=== PATIENT | female | born 1965 | race Caucasian/White ===

== ENCOUNTER 2016-09-11 07:33 | Day surgery (SDC) | payer OTHER ==
[2016-09-07 16:04] VITALS: BMI 30.7
[2016-09-11] MEDS ORDERED: LIDOCAINE HCL/PF 2% SDV 5ML VIAL ONE (08:46)
[2016-09-11] MEDS ORDERED: ceFAZolin SODIUM 1 GM VIAL ONE (08:46)
[2016-09-11] MEDS ORDERED: PROPOFOL 20 ML ONE ×2 (08:46)
[2016-09-11] MEDS ORDERED: MIDAZOLAM HCL 2 MG/2 ML SINGLE DOSE VIAL ONE (08:47)
[2016-09-11] MEDS ORDERED: ROCURONIUM BROMIDE 50 MG/5 ML VIAL ONE ×2 (08:48→09:38)
--- NOTE | 2016-09-11 09:05 | HP ---
History & Physical Update - History History: No Change - Physical Physical: No Change - Assessment Assessment: No Change - Plan Plan: No Change
[2016-09-11] MEDS ORDERED: BUPIVACAINE HCL/PF 0.5% (5MG/ML) 10 ML VIAL ONE (09:08)
[2016-09-11] MEDS ORDERED: ceFAZolin SODIUM 1 GM VIAL IVPB ONE (09:14)
[2016-09-11] MEDS ORDERED: BUPIVACAINE HCL/PF 0.5% (5MG/ML) 10 ML VIAL IJ ONE (09:29)
[2016-09-11] MEDS ORDERED: DEXAMETHASONE SOD PHOSPHATE 4 MG/1 ML VIAL ONE (09:38)
[2016-09-11] MEDS ORDERED: NEOSTIGMINE METHYLSULFATE 0.5 MG/ML - 10 ML MDV ONE (09:38)
[2016-09-11] MEDS ORDERED: GLYCOPYRROLATE 0.2 MG/1 ML VIAL ONE (09:38)
[2016-09-11] MEDS ORDERED: ONDANSETRON 4 MG/2 ML VIAL IVPUSH PRN (11:12)
[2016-09-11] MEDS ORDERED: IBUPROFEN 800 MG/8 ML IJ IVPB PRN (11:12)
[2016-09-11] MEDS ORDERED: ACETAMINOPHEN 1000 MG/100 ML VIAL (NON FORMULARY) IVPB PRN (11:13)
--- NOTE | 2016-09-11 11:47 | OP ---
Operative Note - Note: Operative Date: 09/11/16 Pre-Operative Diagnosis: ventral hernia Operation: robotic NORA, umbilical hernia and diastasis recti repair Findings: omental adhesions, 1.5 cm umbilical defect, diastasis recti Post-Operative Diagnosis: Other (adhesions, umbilical hernia, diastasis recti) Surgeon: José Miguel Alvarez Supervisor Microfilm Duplicating Unit: Emily Irene Anesthesia: General Estimated Blood Loss (mls): 3 Operative Report Dictated: Yes
--- NOTE | 2016-09-11 16:02 | OP ---
DATE OF OPERATION: 09/11/2016 PROCEDURE: Robotic assisted umbilical hernia and diastasis recti repair, lysis of adhesions. PREOPERATIVE DIAGNOSIS: Umbilical hernia. POSTOPERATIVE DIAGNOSIS: Umbilical hernia and diastasis recti. SURGEON: José Miguel Alvarez M.D. PHLEBOTOMY TECHNOLOGIST: Selina Wiley ANESTHESIA: General endotracheal anesthesia. FINDINGS AND PROCEDURE: This is a 51-year-old female who presents with an umbilical bulge of about 4 cm in diameter on physical examination. Patient also had a previous section via Pfannenstiel incision which revealed a suprapubic fullness. So patient was advised repair of the umbilical hernia, and consent was obtained after discussing the risks, benefits, and alternatives to the procedure. Patient was brought to the operating room and placed in supine position. General endotracheal anesthesia was administered. A roll was then placed under the patient's left flank. The abdomen was prepped and draped in the usual sterile fashion using Xeroform 5% Marcaine, local anesthesia was administered to the proposed incision sites. The peritoneal cavity was entered via left subcostal incision behind the anterior axillary line using the Veress needle technique, pneumoperitoneum was established. An 8-mm port was then inserted. The 30-degree, 3-D laparoscope was then inserted, and the peritoneal cavity was carefully inspected to rule out inadvertent injury. At this point, the omental adhesions were noted at the area of the umbilicus. Two 8-mm ports were inserted at the left flank, behind the axillary line one at the level of the umbilicus and one at the left lower quadrant just 1 fingerbreadth anterior to the anterior superior iliac spine. The target organ was then set, and the robotic arms were docked. A fenestrated bipolar forceps was inserted at the left lower quadrant port, and EndoWrist sebastian connected to monopolar cautery was inserted in the left subcostal port. The undersigned scrubbed out to commence the console part of the procedure. The omental adhesions were taken down using the laparoscopic EndoWrist sebastian connected to monopolar cautery towards the Pfannenstiel incision was also carefully inspected and noted to have some weakness but no obvious hernia defect. The peritoneal covering the umbilicus was incised and a 1.5-cm defect at the umbilicus was noted. The rectus abdominis muscles were noted to be away from the midline, causing the diastasis. At this point, the falciform ligament was taken down to about at least 10 cm away from the umbilicus. The diastasis as well as the umbilical hernia was then repaired using V-Loc number 1 nonabsorbable suture in a running fashion startin at least 5 cm below the umbilicus towards the falciform ligament also 5 cm above the umbilicus. The weakness of the Pfannenstiel incision was also apposed with 1 [id number] V-Loc number 1 nonabsorbable suture. After the repair was deemed satisfactory, the instruments were removed, the robotic arms were undocked, and the pneumoperitoneum was evacuated. The ports were removed and the wounds were closed with subcuticular Biosyn 4-0 sutures reinforced with Dermabond. The patient was successfully extubated and transferred to the postanesthesia care unit in satisfactory condition. Estimated blood loss was about 2 mL, wound class clean. Patient received 1 g of Ancef prior to the start of the procedure. ADDENDUM: Robotic assisted lysis of adhesions. Max [id number] MTDD
[2016-09-11] MEDS ORDERED: oxyCODONE HCL 5 MG TABLET PO PRN (16:14)
[2016-09-11] MEDS ORDERED: ACETAMINOPHEN INJECTION 100 ML IVPB ONE (17:04)
[2016-09-11] MEDS ORDERED: ACETAMINOPHEN 1000 MG/100 ML VIAL (NON FORMULARY) IVPB ONE (17:11)
[2016-09-11] MEDS: LACTATED RINGERS SOLUTION 1,000 ML IV SCH (20:14)
[2016-09-12] MEDS: LACTATED RINGERS SOLUTION 1,000 ML IV SCH (06:22)
[2016-09-12 08:05] VITALS: BP 120/73; TEMP 98.2
[2016-09-12 10:15] VITALS: PULSE 73
--- NOTE | 2016-09-12 10:45 | DS ---
Physical Exam: SUBJECTIVE: Patient seen and examined. Patient is feeling well. She is having some abdominal pain, but it is controlled. She is tolerating her diet. She has been voiding without issue. She denies CP, SOB, fever, chills, nausea, vomiting. OBJECTIVE: Vital Signs Temperature 98.2 F 09/12/16 08:00 Pulse Rate 73 09/12/16 10:00 Respiratory Rate 18 09/12/16 08:00 Blood Pressure 120/73 09/12/16 08:00 O2 Sat by Pulse Oximetry (%) 94 L 09/12/16 10:00 PHYSICAL EXAM GENERAL: The patient is awake, alert, and fully oriented, in no acute distress. HEAD: Normal with no signs of trauma. EYES: PERRL, extraocular movements intact, sclera anicteric, conjunctiva clear. ENT: Moist mucous membranes. NECK: Trachea midline, full range of motion, supple. LUNGS: Breath sounds equal, clear to auscultation bilaterally, no wheezes, no crackles, no accessory muscle use. HEART: Regular rate and rhythm, S1, S2 without murmur, rub or gallop. ABDOMEN: Soft, mild tenderness with palpation, port site incisions clean/dry/ intact, nondistended, no guarding, no rebound EXTREMITIES: 2+ pulses, warm, well-perfused, no edema. NEUROLOGICAL: Cranial nerves II through XII grossly intact. Normal speech, gait not observed. PSYCH: Normal mood, normal affect. SKIN: Warm, dry, normal turgor, no rashes or lesions noted. LABS CBC,CMP POC Glucometer 93 UNITS (()) 09/12/16 06:33 HOSPITAL COURSE: Date of Admission:09/11/16 Date of Discharge: 09/12/16 The patient presented to [facility] on 09/11/16 for a planned robotic umbilical hernia repair with Dr. Alvarez. The operation proceeded without complication. Please see full operative report for complete detail. The patient was admitted to the Med- Surg Unit after surgery for low oxygen saturation (80-88). Patient was placed on 2L NC and saturations improved. Now, POD#1 s/p robotic NORA, umbilical hernia and diastasis recti repair, oxygen saturations 94-98 on room air. The patient's hospital stay was largely uneventful. She is tolerating her diet, pain is controlled, she is urinating without issue, and ambulating. The discharge instructions and an oral pain management plan were reviewed with the patient. All questions answered. Above plan discussed with Dr. Alvarez and agreed. Minutes to complete discharge: 30 Visit type - Case Type Case Type: Scheduled Admission
[2016-09-12] MEDS ORDERED: PATIENT'S OWN MEDICATION (NON-FORMULARY) (Amlodipine Bes/Olmesartan Med [Amlodipine-Olmesa PO SCH (10:54)
--- NOTE | 2016-09-12 12:20 | SURG ---
Addendum entered and electronically signed by Emily Irene PA 09/12/16 12:24: date of surgery was 09/11 Original Note: Surgery Training Assistant Note Training Assistant: Emily Irene PA-C Date of Service: 09/12/16 Diagnosis: ventral hernia Procedure: robotic NORA, umbilical hernia and diastasis recti repair I was present for the entirety of the operative procedure. For further detail, please refer to operative report. Visit type - Case Type Case Type: Scheduled Admission - Emergency Emergency Visit: No - New patient This patient is new to me today: No - Critical Care Critical Care patient: No
[2016-09-12] MEDS ORDERED: metFORMIN HCL 500 MG TABLET (FP) PO SCH (16:30)
[2016-09-13] MEDS ORDERED: PATIENT'S OWN MEDICATION (NON-FORMULARY) (Amlodipine Bes/Olmesartan Med [Amlodipine-Olmesa PO SCH (10:51)
== END 2016-09-12 13:25 | disposition home or self-care (01) ==
LOC: JASU-SURG 07:33 → J6S 18:10 → JASU-SURG 09-12 13:25
PROVIDERS: ATTEND Surgery
PROC: 8E0W4CZ Robotic Assisted Procedure of Trunk Region, Percutaneous Endoscopic Approach (ICD-10-PCS; 2016-09-11)
PROC: 0WQF4ZZ Repair Abdominal Wall, Percutaneous Endoscopic Approach (ICD-10-PCS; principal; 2016-09-11 09:00)
DX: K42.9 Umbilical hernia without obstruction or gangrene (principal)
CPT/HCPCS: 49652; S2900; 84703; 94010; 94760

== ENCOUNTER 2017-01-10 18:18 | Emergency (ER) | payer OTHER ==
[2017-01-10 18:56] VITALS: BP 145/83; PULSE 98; TEMP 98.2; BMI 30.9
[2017-01-10] MEDS ORDERED: IBUPROFEN 400 MG TABLET (FP) PO ONE ×2 (19:29→19:32)
--- NOTE | 2017-01-10 19:34 | PDOC ---
History of Present Illness - General Chief Complaint: Injury Stated Complaint: INJURY Time Seen by Provider: 01/10/17 19:14 History Source: Patient - History of Present Illness Occurred: reports: yesterday Severity: reports: moderate Upper Extremity Pain Location: left: wrist Past History - Past Medical History Allergies/Adverse Reactions: Allergies Allergy/AdvReac Type Severity Reaction Status Date / Time No Known Drug Allergies Allergy Verified 01/10/17 18:56 Home Medications: Ambulatory Orders Amlodipine Bes/Olmesartan Med [Amlodipine-Olmesartan 5-40 mg] 1 each PO DAILY Metformin HCl 500 mg PO BID 09/07/16 Aspirin/Acetaminophen/Caffeine [Excedrin Migraine Caplet] 1 each PO PRN PRN #0 09/11/16 Anemia: No Cardiac Disorders: No CHF: No Diabetes: Yes Disorders: No HTN: Yes Liver Disease: No Thyroid Disease: No - Surgical History Abdominal Surgery: Yes (umbilical hernia) - Psycho/Social/Smoking Cessation Hx Suicidal Ideation: No Smoking History: Never smoked Have you smoked in the past 12 months: No Information on smoking cessation initiated: No Hx Alcohol Use: No Drug/Substance Use Hx: No Substance Use Type: None Review of Systems - Review of Systems Constitutional: No: Chills, Fever Musculoskeletal: Yes: Joint Pain, Joint Swelling Neurological: No: Numbness, Tingling, Weakness *Physical Exam - Vital Signs Last Vital Signs Temp Pulse Resp BP Pulse Ox 98.2 F 98 H 18 145/83 98 01/10/17 18:48 01/10/17 18:48 01/10/17 18:48 01/10/17 18:48 01/10/17 18:48 - Physical Exam General Appearance: Yes: Appropriately Dressed. No: Apparent Distress HEENT: positive: Normal Voice Neck: positive: Supple Respiratory/Chest: negative: Respiratory Distress Extremity: positive: Tender, Swelling, Other (localized ecchymosis to volar aspect of L wrist w/ +ttp, FROMI, no snuffbox ttp) Integumentary: positive: Dry, Warm Neurologic: positive: Fully Oriented, Alert, Normal Mood/Affect ED Treatment Course - RADIOLOGY Radiology Studies Ordered: Category Date Time Status WRIST-LEFT [RAD] Stat Radiology 01/10/17 19:28 Ordered Medical Decision Making - Medical Decision Making 01/10/17 19:29 51-year-old female, history of diabetes, hypertension, here with pain and swelling to left wrist 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 Patient states she first heard "an explosion" in her wrist and this a.m. noticed bruising. States pain worse with flexion of wrist and radiates proximally to forearm. Denies any specific trauma. Also complaining of intermittent cramps to bilaterally hands "for a long time" as per pt See exam L wrist pain/swelling x 2 days Denies trauma 3x2 cm area of ecchymosis to volar aspect of wrist on exam -pain control -pt insisting on XR though aware less likely fx -anticipate dc w/ pain meds and pmd f/u Chronic b/l hand cramps No findings on exam to explain sxs -pmd f/u 01/10/17 19:51 XR neg. George applied. Pt dc w/ pmd f/u *DC/Admit/Observation/Transfer Diagnosis at time of Disposition: Bruising of wrist, Hand cramps - Discharge Dispostion Disposition: HOME Condition at time of disposition: Good - Referrals Referrals: Derek Ospina MD [Primary Care Provider] - - Patient Instructions Printed Discharge Instructions: Contusion Additional Instructions: Your xray was normal. Take 600mg-800mg motrin for pain and follow up with your PMD
== END 2017-01-10 19:56 | disposition home or self-care (01) ==
LOC: JERFT 18:18
DX: S60.212A Contusion of left wrist, initial encounter (principal); X58.XXXA Exposure to other specified factors, initial encounter; Y93.G1 Activity, food preparation and clean up; Y92.512 Supermarket, store or market as the place of occurrence of the external cause; Y99.0 Civilian activity done for income or pay
CPT/HCPCS: 73110-TC-LT; 99281-25

== ENCOUNTER 2018-05-28 15:22 | Emergency (ER) | payer OTHER ==
[2018-05-28 15:38] VITALS: BP 136/84; PULSE 84; TEMP 98.5; BMI 30.9
--- NOTE | 2018-05-28 15:58 | PDOC ---
History of Present Illness - General Chief Complaint: Pain Stated Complaint: EAR PROBLEM Time Seen by Provider: 05/28/18 15:57 History Source: Patient Exam Limitations: No Limitations - History of Present Illness Initial Comments: 05/28/18 16:22 Patient is a 53-year-old female who presents to the emergency department today for pain to her left ear. Patient states she feels a ball on the outside of her ear and states that it has been there for 3-4 days. She states that it hurts to lay on her ear due to the pain. Denies fevers, chills, jaw pain, hearing loss, otorrhea, dizziness. Past History - Travel Traveled outside of the country in the last 30 days: No Close contact w/someone who was outside of country & ill: No - Past Medical History Allergies/Adverse Reactions: Allergies Allergy/AdvReac Type Severity Reaction Status Date / Time No Known Drug Allergies Allergy Verified 05/28/18 15:46 Home Medications: Ambulatory Orders Amlodipine Bes/Olmesartan Med [Amlodipine-Olmesartan 5-40 mg] 1 each PO DAILY metFORMIN HCL [Metformin HCl] 500 mg PO BID 09/07/16 Cephalexin Monohydrate [Keflex -] 500 mg PO BID #14 capsule 05/28/18 Anemia: No Cardiac Disorders: No COPD: No CHF: No Diabetes: Yes (NIDDM) Disorders: No HTN: Yes Liver Disease: No Thyroid Disease: No - Surgical History Abdominal Surgery: Yes (umbilical hernia) - Suicide/Smoking/Psychosocial Hx Smoking History: Never smoked Have you smoked in the past 12 months: No Information on smoking cessation initiated: No Hx Alcohol Use: No Drug/Substance Use Hx: No Substance Use Type: None Review of Systems - Review of Systems Able to Perform ROS?: Yes Comments:: 05/28/18 15:57 CONSTITUTIONAL: Absent: fever, chills, diaphoresis, generalized weakness, malaise, loss of appetite HEENT: Absent: rhinorrhea, nasal congestion, throat pain, throat swelling, difficulty swallowing, mouth swelling, ear pain, eye pain, visual Changes CARDIOVASCULAR: Absent: chest pain, loss of consciousness, palpitations, irregular heart rate, peripheral edema RESPIRATORY: Absent: cough, shortness of breath, dyspnea with exertion, orthopnea, wheezing, stridor, hemoptysis GASTROINTESTINAL: Absent: abdominal pain, abdominal distension, nausea, vomiting, diarrhea, constipation, melena, hematochezia GENITOURINARY: Absent: dysuria, frequency, urgency, hesitancy, hematuria, flank pain, genital pain MUSCULOSKELETAL: Absent: myalgia, arthralgia, joint swelling SKIN: Present: bump to L ear. Absent: rash, itching, pallor HEMATOLOGIC/IMMUNOLOGIC: Absent: easy bleeding, easy bruising, lymphadenopathy, frequent infections ENDOCRINE: Absent: unexplained weight gain, unexplained weight loss, heat intolerance, cold intolerance NEUROLOGIC: Absent: headache, focal weakness or paresthesias, dizziness, unsteady gait, seizure, mental status changes, bladder or bowel incontinence PSYCHIATRIC: Absent: anxiety, depression, suicidal or homicidal ideation, hallucinations. Is the patient limited Spanish proficient: No *Physical Exam - Vital Signs Last Vital Signs Temp Pulse Resp BP Pulse Ox 98.5 F 84 20 136/84 99 05/28/18 15:35 05/28/18 15:35 05/28/18 15:35 05/28/18 15:35 05/28/18 15:35 - Physical Exam Comments: 05/28/18 15:57 GENERAL: Well developed, well nourished. Awake and alert. No acute distress. HEENT: Normocephalic, atraumatic. PERRLA, EOMI. No conjunctival pallor. Sclera are non- icteric. Moist mucous membranes. Oropharynx is clear. No tenderness to the L mastoid process. L TM is pearly [place] in color, [place] and cone of light. NECK: Supple. Full ROM. No JVD. Carotid pulses 2+ and symmetric, without bruits. No thyromegaly. No lymphadenopathy. CARDIOVASCULAR: Regular rate and rhythm. No murmurs, rubs, or gallops. Distal pulses are 2+ and symmetric. PULMONARY: No evidence of respiratory distress. Lungs clear to auscultation bilaterally. No wheezing, rales or rhonchi. ABDOMINAL: Soft. Non-tender. Non-distended. No rebound or guarding. No organomegaly. Normoactive bowel sounds. MUSCULOSKELETAL Normal range of motion at all joints. No bony deformities or tenderness. No CVA tenderness. EXTREMITIES: No cyanosis. No clubbing. No edema. No calf tenderness. SKIN: Pustule to L tragus with associated swelling to the tragus. No erythema. Warm and dry. Normal capillary refill. No jaundice. NEUROLOGICAL: Alert, awake, appropriate. Cranial nerves 2-12 intact. No deficits to light touch and temperature in face, upper extremities and lower extremities. No motor deficits in the in face, upper extremities and lower extremities. Normoreflexic in the upper and lower extremities. Normal speech. Toes are down- going bilaterally. Gait is normal without ataxia. PSYCHIATRIC: Cooperative. Good eye contact. Appropriate mood and affect. Medical Decision Making - Medical Decision Making 05/28/18 16:23 Patient is a 53-year-old female who presents to the emergency department today for pain to her left ear. -Pt afebrile in the department -Pustule to tip of L tragus with associated swelling to the tragus. No TTP of the L mastoid process. -Most likely a cellulitis -Will treat with keflex at this time. First dose given in ED -DC home with ENT follow up -I discussed the physical exam findings, ancillary test results and final diagnoses with the patient. I answered all of the patient's questions. The patient was satisfied with the care received and felt comfortable with the discharge plan and treatment plan. The Patient agrees to follow up with the primary care physician/specialist within 24-72 hours. Return precautions were given. *DC/Admit/Observation/Transfer Diagnosis at time of Disposition: Cellulitis Qualifiers: Site of cellulitis: other site Qualified Code(s): L03.818 - Cellulitis of other sites - Discharge Dispostion Disposition: HOME Condition at time of disposition: Stable Decision to Admit order: No - Referrals Referrals: Derek Ospina MD [Primary Care Provider] - - Patient Instructions Printed Discharge Instructions: DI for Cellulitis -- Adult Additional Instructions: You have cellulitis near your ear from a pimple . This is a skin infection. Please take the Keflex twice a day for one week. Please take all the antibiotics even if you feel better. You may use warm water soaks to the area. Please do this approximately 4-5 times a day. You may take Tylenol or Motrin as needed for pain. Follow the dosing instructions on the bottle. Please follow up with your primary care doctor in 1 week. Return to the emergency department if you have worsening redness, fevers, increasing pain, or have any changes in your symptoms. Usted tiene celulitis cerca de brown odo de un grano. Esta es jasbir infeccin de la piel. Por favor, tome el Keflex dos veces al da anne marie jasbir semana. Por favor, tome todos los antibiticos incluso si se siente mejor. Puede usar agua tibia en remojo a la irina. Por favor, haz esto aproximadamente 4 -5 veces al da. Puede peng Tylenol o Motrin segn sea necesario para el dolor. Siga las instrucciones de dosificacin en la botella. Por favor flavio un seguimiento con brown mdico de atencin primaria en 1 semana. Regrese al departamento de emergencias si tiene empeoramiento de enrojecimiento , fiebre, aumento del dolor o si tiene algn cambio en larry sntomas. - Post Discharge Activity Forms/Work/School Notes: Back to Work
[2018-05-28] MEDS ORDERED: CEPHALEXIN MONOHYDRATE 500 MG CAPSULE (UD) PO ONE (16:15)
[2018-05-28] MEDS ORDERED: CEPHALEXIN MONOHYDRATE 500 MG CAPSULE (UD) ONE (16:19)
== END 2018-05-28 16:45 | disposition home or self-care (01) ==
LOC: JERFT 15:22
DX: H60.12 Cellulitis of left external ear (principal); I10 Essential (primary) hypertension; E11.9 Type 2 diabetes mellitus without complications; Z79.84 Long term (current) use of oral hypoglycemic drugs
CPT/HCPCS: 99281-25